=== PATIENT | female | born 1980 | race African-American/Black ===

== ENCOUNTER 2016-06-25 22:54 | Emergency (ER) | payer OTHER ==
[2016-06-25 23:00] VITALS: BP 130/77; PULSE 81; TEMP 98.8; BMI 38.0
--- NOTE | 2016-06-25 23:37 | PDOC ---
History of Present Illness - General Chief Complaint: Vaginal Bleeding Stated Complaint: VAG BLEED/ 5 WEEKS Time Seen by Provider: 06/25/16 23:02 History Source: Patient Exam Limitations: No Limitations - History of Present Illness Travel History: No Initial Comments: 06/25/16 23:31 36yo Female patient with PmHx: Sickle Cell Anemia presents to ED c/o 5 weeks with vaginal bleeding. W2-E5-N2-A1-L3. Patient states experiencing abdominal cramping, back and hip pain x 1 week. She reports vaginal spotting around 1-2 pm today with the passing of clots prior to her arrival in ED. Patient denies n/v/d, fever, dysuria, hematuria, diff breathing, or any other complaints at this time. Associated urinary frequency. LNMP: May 15. TRAFFIC DIRECTOR: Dr. Tse Timing/Duration: reports: changing over time Quality: reports: moderate, cramping Abdominal Pain Onset Location: reports: suprapubic Pain Radiation: reports: no radiation Activities at Onset: reports: none Past History - Travel Traveled outside of the country in the last 30 days: No Close contact w/someone who was outside of country & ill: No - Past Medical History Allergies/Adverse Reactions: Allergies Allergy/AdvReac Type Severity Reaction Status Date / Time ketorolac tromethamine Allergy Severe Swelling Verified 06/25/16 22:58 [From Toradol] meperidine HCl [From Demerol] Allergy Severe Swelling Verified 06/25/16 22:58 Home Medications: Ambulatory Orders NK [No Known Home Medication] 06/25/16 Anemia: Yes (sickle cell ) Other medical history: sicle cell - Immunization History Immunization Up to Date: No - Psycho/Social/Smoking Cessation Hx Anxiety: No Suicidal Ideation: No Smoking Status: No Smoking History: Never smoked Have you smoked in the past 12 months: No Number of Cigarettes Smoked Daily: 0 Cigars Per Day: 0 Information on smoking cessation initiated: No Hx Alcohol Use: No Drug/Substance Use Hx: No Substance Use Type: None Abd/GI Specific PMHX - Complaint Specific PMHX Colitis: No Diverticulitis: No Gall Bladder Disease: No GERD: No Hepatitis: No Irritable Bowel Synd (IBS): No Pancreatitis: No GI Ulcer Disease: No Review of Systems - Review of Systems Able to Perform ROS?: Yes Is the patient limited Lao proficient: No Constitutional: No: Chills, Fever, Night Sweats Respiratory: No: Cough, Shortness of Breath, Stridor, Wheezing Cardiac (ROS): No: Chest Pain, Lightheadedness, Palpitations, Syncope, Chest Tightness ABD/GI: Yes: Abdominal cramping, Other (Vaginal bleeding & 5 weeks ). No: Diarrhea, Nausea, Poor Appetite, Poor Fluid Intake, Vomiting : Yes: Frequency. No: Burning, Dysuria, Flank Pain, Hematuria, Pain, Urgency Musculoskeletal: Yes: Back Pain Neurological: No: Headache Hematologic/Lymphatic: Yes: Anemia (Sickle Cell) All Other Systems: Reviewed and Negative *Physical Exam - Vital Signs Last Vital Signs Temp Pulse Resp BP Pulse Ox 98.8 F 81 14 130/77 98 06/25/16 22:58 06/25/16 22:58 06/25/16 22:58 06/25/16 22:58 06/25/16 22:58 - Physical Exam General Appearance: Yes: Nourished, Appropriately Dressed, Apparent Distress. No: Mild Distress, Moderate Distress, Severe Distress Neck: positive: Trachea midline, Supple. negative: Lymphadenopathy (R), Lymphadenopathy (L) Respiratory/Chest: positive: Lungs Clear, Normal Breath Sounds. negative: Respiratory Distress, Accessory Muscle Use, Labored Respiration, Rapid RR Cardiovascular: positive: Regular Rhythm, Regular Rate. negative: Edema, JVD, Murmur Gastrointestinal/Abdominal: positive: Normal Bowel Sounds, Soft, Other (Neg adenexa pain or suprapubic tenderness on examination.). negative: Distended, Guarding, Rebound, Tenderness Musculoskeletal: positive: Normal Inspection. negative: CVA Tenderness Extremity: positive: Normal Capillary Refill, Normal Inspection, Normal Range of Motion Integumentary: positive: Normal Color, Dry, Warm Neurologic: positive: geriatric social worker II-XII NML intact, Fully Oriented, Alert, Normal Mood/ Affect, Normal Response, Motor Strength 5/5 ED Treatment Course - LABORATORY CBC & Chemistry Diagram: 06/25/16 23:14 06/25/16 23:14 - RADIOLOGY Radiology Studies Ordered: Category Date Time Status <14WKS US [US] Stat Ultrasound 06/25/16 23:03 Ordered *DC/Admit/Observation/Transfer Diagnosis at time of Disposition: Threatened in early Antepartum hemorrhage Qualifiers: Trimester: first trimester Qualified Code(s): O46.91 - Antepartum hemorrhage, unspecified, first trimester - Discharge Dispostion Disposition: HOME Condition at time of disposition: Stable Admit: No - Referrals Referrals: Tania Munroe [Primary Care Provider] - - Patient Instructions Printed Discharge Instructions: DI for Threatened , DI for Vaginal Bleeding During Additional Instructions: FOLLOW UP WITH DR. TSE (TRAFFIC DIRECTOR) ON TUESDAY. IF YOUR SYMPTOMS WORSEN, RETURN FOR FURTHER EVALUATION. Print Language: GHANAIAN - Post Discharge Activity Work/School Note: Back to Work
[2016-06-25 23:39] LABS: BASOPHIL 1.1 % (0-2.0); EOSINOPHIL 3.5 % (0-4.5); MCH 27.4 pg (25.7-33.7); MCHC 34.4 g/dl (32.0-36.0); MEAN CELL VOLUME 79.7 fl (80-96); MEAN PLT VOLUME 6.7 fl (7.5-11.1); NEUTROPHILS 49.8 % (42.8-82.8); PLATELET COUNT 382 K/MM3 (134-434); RDW 16.5 % (11.6-15.6); WHITE BLOOD COUNT 13.8 K/mm3 (4.0-10.0)
[2016-06-25 23:55] LABS: URINE APPEARANCE CLEAR; URINE BILIRUBIN NEGATIVE (NEGATIVE); URINE COLOR LTYELLOW; URINE GLUCOSE (UA) NEGATIVE (NEGATIVE); URINE KETONE NEGATIVE (NEGATIVE); URINE LEUK ESTERASE NEGATIVE (NEGATIVE); URINE NITRITE NEGATIVE (NEGATIVE); URINE PROTEIN NEGATIVE (NEGATIVE); URINE UROBILINOGEN NEGATIVE E.U./dl (0.2-1.0)
[2016-06-26 00:03] LABS: ALBUMIN 3.8 g/dl (3.4-5.0); ANION GAP 9 (8-16); BILIRUBIN,TOTAL 0.8 mg/dL (0.2-1.0); CO2 28 mmol/L (21-32); CREATININE 0.7 mg/dL (0.55-1.02); GLUCOSE,RANDOM 86 mg/dL (74-106); SGOT/AST 21 U/L (15-37); SGPT/ALT 21 U/L (12-78); TOT PROT 7.2 g/dl (6.4-8.2)
[2016-06-26 00:04] LABS: ALK PHOS 53 U/L (45-117)
[2016-06-26 00:10] LABS: URINE BLOOD 3+ (NEGATIVE)
[2016-06-26 00:12] LABS: URINE BACTERIA RARE /hpf (NONE SEEN); URINE MUCUS RARE; URINE RBC 1 /hpf (0-3); URINE WBC 3 /hpf (3-5)
--- NOTE | 2016-06-26 00:33 | PDOC ---
[id number] 98 06/25/16 22:58 06/25/16 22:58 06/25/16 22:58 06/25/16 22:58 06/25/16 22:58 ED Treatment Course - LABORATORY CBC & Chemistry Diagram: 06/25/16 23:14 06/25/16 23:14 - ADDITIONAL ORDERS Additional order review: Laboratory Results 06/25/16 06/25/16 06/25/16 23:14 23:14 23:14 Sodium 141 Potassium 3.8 Chloride 104 Carbon Dioxide 28 Anion Gap 9 BUN 9 D Creatinine 0.7 D Creat Clearance w eGFR > 60 Random Glucose 86 Calcium 9.0 Total Bilirubin 0.8 AST 21 D ALT 21 D Alkaline Phosphatase 53 Total Protein 7.2 Albumin 3.8 Beta HCG, Quant 4111.6 Serum , Qual Urine Color Urine Appearance Urine pH Ur Specific [place] Urine Protein Urine Glucose (UA) Urine Ketones Urine Blood Urine Nitrite Urine Bilirubin Urine Urobilinogen Ur Leukocyte Esterase Urine RBC Urine WBC Ur Epithelial Cells Urine Bacteria Urine Mucus Blood Type O POSITIVE Antibody Screen Negative 06/25/16 23:14 Sodium Potassium Chloride Carbon Dioxide Anion Gap BUN Creatinine Creat Clearance w eGFR Random Glucose Calcium Total Bilirubin AST ALT Alkaline Phosphatase Total Protein Albumin Beta HCG, Quant Serum , Qual Positive Urine Color Ltyellow Urine Appearance Clear Urine pH 7.0 D Ur Specific [place] 1.012 Urine Protein Negative Urine Glucose (UA) Negative Urine Ketones Negative Urine Blood 3+ H Urine Nitrite Negative Urine Bilirubin Negative Urine Urobilinogen Negative Ur Leukocyte Esterase Negative Urine RBC 1 Urine WBC 3 Ur Epithelial Cells Few Urine Bacteria Rare Urine Mucus Rare Blood Type Antibody Screen 06/25/16 23:14 RBC 3.48 L MCV 79.7 L MCHC 34.4 RDW 16.5 H MPV 6.7 L Neutrophils % 49.8 Lymphocytes % 37.4 D Monocytes % 8.2 Eosinophils % 3.5 Basophils % 1.1 Medical Decision Making - Medical Decision Making 06/26/16 00:33 Pt seen by the Advanced Practice Provider under my direct supervision Ancillary studies reviewed I agree with plan as outlined by the Advanced Practice Provider JACKIE Collins *DC/Admit/Observation/Transfer Diagnosis at time of Disposition: Threatened in early , Vaginal bleeding in - Discharge Dispostion Disposition: HOME Condition at time of disposition: Stable - Referrals Referrals: Tania Munroe [Primary Care Provider] - - Patient Instructions Printed Discharge Instructions: DI for Threatened , DI for Vaginal Bleeding During Additional Instructions: FOLLOW UP WITH DR. PEDERSEN (SECOND STEWARD) ON TUESDAY. IF YOUR SYMPTOMS WORSEN, RETURN FOR FURTHER EVALUATION. Print Language: POLISH - Post Discharge Activity Work/School Note: Back to Work
== END 2016-06-26 02:28 | disposition home or self-care (01) ==
LOC: JER 22:54
DX: O26.891 Other specified pregnancy related conditions, first trimester (principal); Z3A.01 Less than 8 weeks gestation of pregnancy; O20.0 Threatened abortion; D57.1 Sickle-cell disease without crisis
CPT/HCPCS: 36415; 76801-TC; 80053; 81003; 81015; 84702; 84703; 85025; 85044; 86850; 86900; 86901; 99282-25

== ENCOUNTER 2016-07-10 03:07 | Emergency (ER) | payer OTHER ==
[2016-07-10] MEDS ORDERED: SODIUM CHLORIDE 0.9% 500 ML INFUS.BAG IV ONE (03:33)
--- NOTE | 2016-07-10 03:34 | PDOC ---
[id number] No Limitations - History of Present Illness Initial Comments: 07/10/16 04:07 The patient is a 36-year-old female who is 7 weeks , (A1), with a significant past medical history of sickle cell disease and prior blood transfusion (hemorrhage during ), who presents to the ED with vaginal bleeding that began 3 weeks ago. Patient was seen in the ED on 06/26 for vaginal bleeding and was discharged with threatened baby. The pts bleeding has not stopped since her last visit and progressively worsened last night. While in ED , pt is experiencing abdominal cramping and dizziness. The patient denies any nausea, vomiting, or diarrhea. The patient denies any chest pain or shortness of breath. <Chela Herrera - Last Filed: 07/10/16 04:07> <Zeferino López - Last Filed: 08/05/16 06:29> - General Chief Complaint: Vaginal Bleeding Stated Complaint: VAGINAL BLEEDING Past History <Chela Herrera - Last Filed: 07/10/16 04:07> - Past Medical History Anemia: Yes (sickle cell ) - Reproductive History (#): 5 Para: 3 Therapeutic (s) & number: Yes (1) - Immunization History Immunization Up to Date: No - Psycho/Social/Smoking Cessation Hx Anxiety: No Suicidal Ideation: No Smoking Status: No Smoking History: Never smoked Have you smoked in the past 12 months: No Number of Cigarettes Smoked Daily: 0 Cigars Per Day: 0 Hx Alcohol Use: No Drug/Substance Use Hx: No Substance Use Type: None <Zeferino López - Last Filed: 08/05/16 06:29> - Past Medical History Allergies/Adverse Reactions: Allergies Allergy/AdvReac Type Severity Reaction Status Date / Time ketorolac tromethamine Allergy Severe Swelling Verified 07/10/16 03:20 [From Toradol] meperidine HCl [From Demerol] Allergy Severe Swelling Verified 07/10/16 03:20 hydromorphone HCl AdvReac Mild Itching Verified 07/10/16 06:46 [From Dilaudid] morphine AdvReac Mild Itching Verified 07/10/16 06:46 Home Medications: Ambulatory Orders Methylergonovine Maleate [Methergine] 0.2 mg PO Q8H #6 tablet 07/10/16 Review of Systems - Review of Systems Able to Perform ROS?: Yes Comments:: 07/10/16 04:07 GENERAL/CONSTITUTIONAL: No fever or chills. No weakness. HEAD, EYES, EARS, NOSE AND THROAT: No change in vision. No ear pain or discharge. No sore throat. CARDIOVASCULAR: No chest pain or shortness of breath. RESPIRATORY: No cough, wheezing, or hemoptysis. GASTROINTESTINAL: No nausea, vomiting, diarrhea or constipation. (+)Abdominal cramping GENITOURINARY: No dysuria, frequency, or change in urination. (+)vaginal bleeding MUSCULOSKELETAL: No joint or muscle swelling or pain. No neck or back pain. SKIN: No rash NEUROLOGIC: No headache, vertigo, loss of consciousness, or change in strength/ sensation. (+)Dizziness ENDOCRINE: No increased thirst. No abnormal weight change. HEMATOLOGIC/LYMPHATIC: No anemia, easy bleeding, or history of blood clots. ALLERGIC/IMMUNOLOGIC: No hives or skin allergy. <Chela Herrera - Last Filed: 07/10/16 04:07> *Physical Exam - Vital Signs Last Vital Signs Temp Pulse Resp BP Pulse Ox 90 24 132/80 97 07/10/16 03:20 07/10/16 03:20 07/10/16 03:20 07/10/16 03:20 - Physical Exam Comments: 07/10/16 04:08 GENERAL: Awake, alert, and fully oriented, in no acute distress HEAD: No signs of trauma EYES: PERRLA, EOMI, sclera anicteric, conjunctiva clear ENT: Auricles normal inspection, hearing grossly normal, nares patent, oropharynx clear without exudates. Moist mucosa. NECK: Normal ROM, supple, no lymphadenopathy, JVD, or masses LUNGS: Breath sounds equal, clear to auscultation bilaterally. No wheezes, and no crackles HEART: Regular rate and rhythm, normal S1 and S2, no murmurs, rubs or gallops ABDOMEN: Soft, nontender, normoactive bowel sounds. No guarding, no rebound. No masses EXTREMITIES: Normal range of motion, no edema. No clubbing or cyanosis. No cords, erythema, or tenderness NEUROLOGICAL: Cranial nerves II through XII grossly intact. Normal speech, normal gait SKIN: Warm, Dry, normal turgor, no rashes or lesions noted Pelvic Exam chaperoned by Clay: Uncomfortable suprapubic pain on palpation. Significant amount of coagulants as well as product of conception. No pain noted on palpation of vaginal cavity. Cervical os is open <Chela Herrera - Last Filed: 07/10/16 04:07> - Vital Signs Last Vital Signs Temp Pulse Resp BP Pulse Ox 90 24 132/80 97 07/10/16 03:20 07/10/16 03:20 07/10/16 03:20 07/10/16 03:20 <Zeferino López - Last Filed: 08/05/16 06:29> ED Treatment Course - LABORATORY CBC & Chemistry Diagram: 07/10/16 03:55 - Medications Given in the ED: ED Medications Discontinued Medications Generic Name Dose Route Start Last Admin Trade Name Jeromeq PRN Reason Stop Dose Admin Morphine Sulfate 8 mg 07/10/16 03:40 07/10/16 03:54 Morphine Injection - IVPUSH 07/10/16 03:41 8 mg ONCE ONE Administration Sodium Chloride 1,000 ml 07/10/16 03:33 07/10/16 03:55 Normal Saline - IV 07/10/16 03:34 1,000 ml ONCE ONE Administration <Chela Herrera - Last Filed: 07/10/16 04:07> - LABORATORY CBC & Chemistry Diagram: 07/10/16 04:50 07/10/16 04:52 <Zeferino López - Last Filed: 08/05/16 06:29> Medical Decision Making - Medical Decision Making 08/05/16 06:29 ED attending: available for consultation <Zeferino López - Last Filed: 08/05/16 06:29> *DC/Admit/Observation/Transfer - Attestations Scribe Attestion: 07/10/16 04:12 Documentation prepared by Chela Herrera, acting as medical supply technician for Zeferino López MD. <Chela Herrera - Last Filed: 07/10/16 04:07> - Discharge Dispostion Admit: No <Zeferino López - Last Filed: 08/05/16 06:29> Diagnosis at time of Disposition: Inevitable - Discharge Dispostion Disposition: HOME Condition at time of disposition: Good - Prescriptions Prescriptions: Methylergonovine Maleate [Methergine] 0.2 mg PO Q8H #6 tablet - Patient Instructions Printed Discharge Instructions: DI for Miscarriage - Post Discharge Activity Work/School Note: Back to Work
[2016-07-10 03:39] VITALS: BMI 38.0
[2016-07-10] MEDS ORDERED: morphine CARPU-JECT 4 MG/1 ML DISP.SYRIN IVPUSH ONE (03:40)
[2016-07-10] MEDS ORDERED: morphine CARPU-JECT 4 MG/1 ML DISP.SYRIN ONE (03:44)
[2016-07-10] MEDS ORDERED: HYDROmorphone HCL CARPU-JECT 1 MG/1 ML DISP.SYRIN IVPUSH ONE (04:41)
[2016-07-10] MEDS ORDERED: HYDROmorphone HCL CARPU-JECT 1 MG/1 ML DISP.SYRIN ONE (04:43)
[2016-07-10 04:57] LABS: BASOPHIL 0.3 % (0-2.0); EOSINOPHIL 2.8 % (0-4.5); MCHC 34.9 g/dl (32.0-36.0); MEAN PLT VOLUME 6.5 fl (7.5-11.1); NEUTROPHILS 60.5 % (42.8-82.8); PLATELET COUNT 416 K/MM3 (134-434); RDW 16.7 % (11.6-15.6); WHITE BLOOD COUNT 12.6 K/mm3 (4.0-10.0)
[2016-07-10 05:20] LABS: ALBUMIN 3.9 g/dl (3.4-5.0); ALK PHOS 55 U/L (45-117); ANION GAP 9 (8-16); CALCIUM 8.4 mg/dL (8.5-10.1); CO2 26 mmol/L (21-32); CREATININE 0.8 mg/dL (0.55-1.02); GLUCOSE,RANDOM 93 mg/dL (74-106); SGOT/AST 25 U/L (15-37); SGPT/ALT 20 U/L (12-78); TOT PROT 7.1 g/dl (6.4-8.2)
[2016-07-10] MEDS ORDERED: FAMOTIDINE 20 MG/50 ML IVPB 50 ML IVPB ONE ×2 (06:13→06:44)
--- NOTE | 2016-07-10 09:19 | PDOC ---
[id number] 100 07/10/16 06:44 07/10/16 06:44 07/10/16 06:44 07/10/16 06:44 07/10/16 06:44 ED Treatment Course - LABORATORY CBC & Chemistry Diagram: 07/10/16 04:50 07/10/16 04:52 - ADDITIONAL ORDERS Additional order review: Laboratory Results 07/10/16 07/10/16 07/10/16 04:52 04:50 04:49 Sodium 141 Potassium 3.6 Chloride 106 Carbon Dioxide 26 Anion Gap 9 BUN 9 Creatinine 0.8 Creat Clearance w eGFR > 60 Random Glucose 93 Calcium 8.4 L Total Bilirubin 1.0 D AST 25 ALT 20 Alkaline Phosphatase 55 Total Protein 7.1 Albumin 3.9 Beta HCG, Quant 2514.7 Blood Type O POSITIVE Antibody Screen Negative 07/10/16 07/10/16 03:55 03:55 Sodium Potassium Chloride Carbon Dioxide Anion Gap BUN Creatinine Creat Clearance w eGFR Random Glucose Calcium Total Bilirubin AST ALT Alkaline Phosphatase Total Protein Albumin Beta HCG, Quant Cancelled Blood Type O POSITIVE Antibody Screen Negative 07/10/16 07/10/16 04:50 03:55 RBC 3.11 L Cancelled MCV 80.0 Cancelled MCHC 34.9 Cancelled RDW 16.7 H Cancelled MPV 6.5 L Cancelled Neutrophils % 60.5 D Cancelled Lymphocytes % 26.6 D Cancelled Monocytes % 9.8 Cancelled Eosinophils % 2.8 Cancelled Basophils % 0.3 Cancelled - Medications Given in the ED: ED Medications Discontinued Medications Generic Name Dose Route Start Last Admin Trade Name Freq PRN Reason Stop Dose Admin Diphenhydramine HCl 12.5 mg 07/10/16 06:44 07/10/16 06:45 Benadryl Injection - IVPUSH 07/10/16 06:45 12.5 mg ONCE ONE Administration Hydromorphone HCl 1 mg 07/10/16 04:41 07/10/16 04:47 Dilaudid Injection - IVPUSH 07/10/16 04:42 1 mg ONCE ONE Administration Famotidine/Sodium Chloride 50 mls @ 100 mls/hr 07/10/16 06:44 07/10/16 06:45 Pepcid 20 Mg Premixed Ivpb - IVPB 07/10/16 07:13 100 mls/hr ONCE ONE Administration Morphine Sulfate 8 mg 07/10/16 03:40 07/10/16 03:54 Morphine Injection - IVPUSH 07/10/16 03:41 8 mg ONCE ONE Administration Sodium Chloride 1,000 ml 07/10/16 03:33 07/10/16 03:55 Normal Saline - IV 07/10/16 03:34 1,000 ml ONCE ONE Administration Medical Decision Making - Medical Decision Making 07/10/16 09:50 Late entry. Patient received on signout, with spontaneous miscarriage in progress. Patient has returned from sono, reading shows material in the cervical canal, uterus with no POCs. As per patient her bleeding has decreased. Will give methergine and cont to monitor. 07/10/16 11:23 Pt tolerated methergine, no c/o pain. Will place her on it for 2 days. Outpatient rn palliative f/u. *DC/Admit/Observation/Transfer Diagnosis at time of Disposition: Inevitable - Discharge Dispostion Disposition: HOME Condition at time of disposition: Stable Admit: No - Prescriptions Prescriptions: Methylergonovine Maleate [Methergine] 0.2 mg PO Q8H #6 tablet - Patient Instructions Printed Discharge Instructions: DI for Miscarriage - Post Discharge Activity Work/School Note: Back to Work
[2016-07-10] MEDS ORDERED: METHYLERGONOVINE MALEATE 0.2 MG/1 ML AMP IM ONE (09:21)
[2016-07-10] MEDS ORDERED: METHYLERGONOVINE MALEATE 0.2 MG/1 ML AMP ONE (09:53)
[2016-07-10 11:07] VITALS: BP 118/71; PULSE 81; TEMP 98.6
--- NOTE | 2016-07-14 14:28 | PATH ---
Surgical Pathology Report Patient Name: PATRICIA DAVE Med. Rec. #: [id number] /Age/Gender: 1980 (Age: 36) / F Account: [id number] Location: EMERGENCY ROOM Taken: 07/10/2016 Received: 07/12/2016 Reported: 07/14/2016 Physicians: Mala Santizo Specimen(s) Received PRODUCTS OF CONCEPTION Clinical History Inevitable Removal of products of conception approximately 7 weeks Final Diagnosis POC, REMOVAL: NO SOMATIC PARTS IDENTIFIED. NO CHORIONIC TISSUE IDENTIFIED. PREDOMINANTLY CLOTTED BLOOD. Comment: This result was reported to Dr. Mala Santizo at [facility] ED on 07/14/16. Follow up with hCG levels is suggested. Electronically Signed Jose Castillo M.D. Gross Description Received in formalin labeled with the patient's name and indicated on the requisition to be products of conception, is a 6.5 x 6.0 x 0.7 cm aggregate of red-brown blood clot. No definite villous tissue or somatic tissues identified. Parts Identification Technician sections are submitted in 3 cassettes. /07/12/2016 saudi/07/12/2016
== END 2016-07-10 11:08 | disposition home or self-care (01) ==
LOC: JER 03:07
PROC: 3E023GC Introduction of Other Therapeutic Substance into Muscle, Percutaneous Approach (ICD-10-PCS; principal; 2016-07-10)
PROC: 3E033NZ Introduction of Analgesics, Hypnotics, Sedatives into Peripheral Vein, Percutaneous Approach (ICD-10-PCS; 2016-07-10)
PROC: 3E033GC Introduction of Other Therapeutic Substance into Peripheral Vein, Percutaneous Approach (ICD-10-PCS; 2016-07-10)
PROC: 3E033GC Introduction of Other Therapeutic Substance into Peripheral Vein, Percutaneous Approach (ICD-10-PCS; 2016-07-10)
DX: O03.4 Incomplete spontaneous abortion without complication (principal); Z3A.01 Less than 8 weeks gestation of pregnancy
CPT/HCPCS: 36415; 76830-TC; 80053; 84702; 85025; 86850; 86900; 86901; 88305-TC; 96365; 96372; 96375; 99285-25

== ENCOUNTER 2017-02-09 18:53 | Emergency (ER) | payer OTHER ==
[2017-02-09 19:00] VITALS: BP 119/82; PULSE 88; TEMP 99; BMI 36.5
--- NOTE | 2017-02-09 19:26 | PDOC ---
History of Present Illness - General History Source: Patient Exam Limitations: No Limitations - History of Present Illness Initial Comments: 02/09/17 19:34 Patient is a 74 year old female, [id number], who presents to the ED with abdominal cramping. She denies any vaginal bleeding or discharge. She states that she is approximately 3 months and has not had SERVICE ORDER TAKER follow up or US. Patient states that her LMP was in early November. She denies any fever or chills. <Carolyn Mehta - Last Filed: 02/09/17 19:34> <Mala Santizo - Last Filed: 02/09/17 23:35> - General Chief Complaint: Pain Stated Complaint: PAIN Time Seen by Provider: 02/09/17 19:15 Past History <Carolyn Mehta - Last Filed: 02/09/17 19:34> - Past Medical History Anemia: Yes (sickle cell ) - Reproductive History (#): 5 Para: 3 Therapeutic (s) & number: Yes (1) - Immunization History Immunization Up to Date: No - Suicide/Smoking/Psychosocial Hx Smoking Status: No Smoking History: Never smoked Have you smoked in the past 12 months: No Number of Cigarettes Smoked Daily: 0 Cigars Per Day: 0 Hx Alcohol Use: No Drug/Substance Use Hx: No Substance Use Type: None <Mala Santizo - Last Filed: 02/09/17 23:35> - Past Medical History Allergies/Adverse Reactions: Allergies Allergy/AdvReac Type Severity Reaction Status Date / Time ketorolac tromethamine Allergy Severe Swelling Verified 02/09/17 19:00 [From Toradol] meperidine HCl [From Demerol] Allergy Severe Swelling Verified 02/09/17 19:00 hydromorphone HCl AdvReac Mild Itching Verified 02/09/17 19:00 [From Dilaudid] morphine AdvReac Mild Itching Verified 02/09/17 19:00 Home Medications: Ambulatory Orders NK [No Known Home Medication] 02/09/17 Review of Systems - Review of Systems Able to Perform ROS?: Yes Comments:: 02/09/17 19:34 GENERAL/CONSTITUTIONAL: No fever or chills. No weakness. HEAD, EYES, EARS, NOSE AND THROAT: No change in vision. No ear pain or discharge. No sore throat. GASTROINTESTINAL: +abdominal pain. No nausea, vomiting, diarrhea or constipation. GENITOURINARY: No dysuria, frequency, or change in urination. CARDIOVASCULAR: No chest pain or shortness of breath. RESPIRATORY: No cough, wheezing, or hemoptysis. MUSCULOSKELETAL: No joint or muscle swelling or pain. No neck or back pain. SKIN: No rash NEUROLOGIC: No headache, vertigo, loss of consciousness, or change in strength/ sensation. ENDOCRINE: No increased thirst. No abnormal weight change. HEMATOLOGIC/LYMPHATIC: No anemia, easy bleeding, or history of blood clots. ALLERGIC/IMMUNOLOGIC: No hives or skin allergy. <Carolyn Mehta - Last Filed: 02/09/17 19:34> *Physical Exam - Vital Signs Last Vital Signs Temp Pulse Resp BP Pulse Ox 99.0 F 88 20 119/82 98 02/09/17 18:57 02/09/17 18:57 02/09/17 18:57 02/09/17 18:57 02/09/17 18:57 <Carolyn Mehta - Last Filed: 02/09/17 19:34> - Vital Signs Last Vital Signs Temp Pulse Resp BP Pulse Ox 99.0 F 88 20 119/82 98 02/09/17 18:57 02/09/17 18:57 02/09/17 18:57 02/09/17 18:57 02/09/17 18:57 - Physical Exam Comments: GENERAL: Awake, alert, and fully oriented, in no acute distress HEAD: No signs of trauma EYES: PERRLA, EOMI, sclera anicteric, conjunctiva clear ENT: Auricles normal inspection, hearing grossly normal, nares patent, oropharynx clear without exudates. Moist mucosa NECK: Normal ROM, supple, no lymphadenopathy, JVD, or masses LUNGS: Breath sounds equal, clear to auscultation bilaterally. No wheezes, and no crackles HEART: Regular rate and rhythm, normal S1 and S2, no murmurs, rubs or gallops ABDOMEN: Soft, +suprapubic tenderness, normoactive bowel sounds. No guarding, no rebound. No masses EXTREMITIES: Normal range of motion, no edema. No clubbing or cyanosis. No cords, erythema, or tenderness NEUROLOGICAL: Cranial nerves II through XII grossly intact. Normal speech, normal gait SKIN: Warm, Dry, normal turgor, no rashes or lesions noted. <Mala Santizo - Last Filed: 02/09/17 23:35> ED Treatment Course - LABORATORY CBC & Chemistry Diagram: 02/09/17 20:00 02/09/17 20:00 <Mala Santizo - Last Filed: 02/09/17 23:35> *DC/Admit/Observation/Transfer - Attestations Scribe Attestion: 02/09/17 19:35 Documentation prepared by NEVA Lazcano, acting as medical records auditor for Mala Santizo MD. <Carolyn Mehta - Last Filed: 02/09/17 19:34> - Discharge Dispostion Admit: No <Mala Santizo - Last Filed: 02/09/17 23:35> Diagnosis at time of Disposition: Second trimester - Discharge Dispostion Disposition: HOME Condition at time of disposition: Stable
[2017-02-09] MEDS ORDERED: SODIUM CHLORIDE 1,000 ML IV STA (19:27)
[2017-02-09 20:05] LABS: BASOPHIL 1.2 % (0-2.0); EOSINOPHIL 3.1 % (0-4.5); MCH 29.1 pg (25.7-33.7); MCHC 34.7 g/dl (32.0-36.0); MEAN CELL VOLUME 83.9 fl (80-96); MEAN PLT VOLUME 6.7 fl (7.5-11.1); NEUTROPHILS 66.3 % (42.8-82.8); PLATELET COUNT 392 K/MM3 (134-434); RDW 15.8 % (11.6-15.6)
[2017-02-09 20:08] LABS: URINE APPEARANCE SLCLOUDY; URINE BILIRUBIN NEGATIVE (NEGATIVE); URINE BLOOD 1+ (NEGATIVE); URINE COLOR YELLOW; URINE GLUCOSE (UA) NEGATIVE (NEGATIVE); URINE KETONE NEGATIVE (NEGATIVE); URINE NITRITE NEGATIVE (NEGATIVE); URINE PROTEIN NEGATIVE (NEGATIVE); URINE UROBILINOGEN NEGATIVE mg/dL (0.2-1.0)
[2017-02-09 20:53] LABS: URINE BACTERIA FEW /hpf (NONE SEEN)
[2017-02-09 21:03] LABS: ALBUMIN 3.3 g/dl (3.4-5.0); ANION GAP 10 (8-16); CALCIUM 8.7 mg/dL (8.5-10.1); CO2 24 mmol/L (21-32); CREATININE 0.6 mg/dL (0.55-1.02); GLUCOSE,RANDOM 110 mg/dL (74-106); SGOT/AST 20 U/L (15-37); SGPT/ALT 17 U/L (12-78); TOT PROT 7.1 g/dl (6.4-8.2)
[2017-02-09 21:20] LABS: ALK PHOS 52 U/L (45-117)
[2017-02-09 22:22] LABS: URINE LEUK ESTERASE Negative (NEGATIVE)
[2017-02-10] MEDS ORDERED: SODIUM CHLORIDE 1,000 ML IV STA (00:53)
[2017-02-10] MEDS ORDERED: ACETAMINOPHEN 1000 MG/100 ML VIAL (NON FORMULARY) IVPB ONE (00:53)
[2017-02-10] MEDS ORDERED: ACETAMINOPHEN INJECTION 100 ML IVPB ONE (01:01)
== END 2017-02-10 02:46 | disposition home or self-care (01) ==
LOC: JER 18:53
DX: O26.891 Other specified pregnancy related conditions, first trimester (principal); O34.11 Maternal care for benign tumor of corpus uteri, first trimester; D25.1 Intramural leiomyoma of uterus; Z3A.13 13 weeks gestation of pregnancy
CPT/HCPCS: 36415; 76801-TC; 80053; 81003; 81015; 84702; 85025; 99283-25

== ENCOUNTER 2017-03-02 16:22 | Emergency (ER) | payer OTHER ==
--- NOTE | 2017-03-02 16:30 | PDOC ---
Rapid Medical Evaluation Time Seen by Provider: 03/02/17 16:27 Medical Evaluation: Allergies Allergy/AdvReac Type Severity Reaction Status Date / Time ketorolac tromethamine Allergy Severe Swelling Verified 02/09/17 19:00 [From Toradol] meperidine HCl [From Demerol] Allergy Severe Swelling Verified 02/09/17 19:00 hydromorphone HCl AdvReac Mild Itching Verified 02/09/17 19:00 [From Dilaudid] morphine AdvReac Mild Itching Verified 02/09/17 19:00 03/02/17 16:28 I have performed a brief in-person evaluation of this patient. The patient presents with a chief complaint of:16 weeks w/ abd camping and vaginal bleeding. Has had documented IUP this . Was seen in ED 3 weeks ago for similar sxs Pertinent physical exam findings:Stable and in NAD I have ordered the following:ua/beta/T&S The patient will proceed to the ED for further evaluation.
[2017-03-02 16:31] VITALS: TEMP 98.9; BMI 37.0
[2017-03-02 16:46] LABS: URINE APPEARANCE SLCLOUDY; URINE BILIRUBIN NEGATIVE (NEGATIVE); URINE BLOOD 1+ (NEGATIVE); URINE COLOR YELLOW; URINE GLUCOSE (UA) NEGATIVE (NEGATIVE); URINE KETONE NEGATIVE (NEGATIVE); URINE NITRITE NEGATIVE (NEGATIVE); URINE PROTEIN NEGATIVE (NEGATIVE)
[2017-03-02 16:56] LABS: URINE MUCUS RARE; URINE RBC 1; URINE WBC 3
--- NOTE | 2017-03-02 17:33 | PDOC ---
History of Present Illness - General Chief Complaint: Pain Stated Complaint: PAIN Time Seen by Provider: 03/02/17 16:27 - History of Present Illness Initial Comments: 03/02/17 17:26 36 yo at 16 wga with h/o sickle cell disease who presents with abdominal pain and vaginal bleeding. Pt. reports onset of stable, crampy/ colicky lower abdominal abdominal pain beginning Saturday ( 02/26/17) with new onset of dark red vaginal spotting yesterday evening. Endorses 24 hr of lightheadedness, and chronic nausea w/out vomiting and lower back pain. Denies bright red gush of blood, vaginal discharge, pelvic pain, fevers/chills, chest pain, vision changes, weakness, urinary complaints, flank pain diarrhea. Recently seen at [facility] this week for abdominal pain and scheduled to have outpatient transvaginal U/S. H/o 2 vaginal pregnancies and 1 caesarian section with no complications. No trauma to abdomen, illicit drug use, or alcohol intake. Past History - Past Medical History Allergies/Adverse Reactions: Allergies Allergy/AdvReac Type Severity Reaction Status Date / Time ketorolac tromethamine Allergy Severe Swelling Verified 03/02/17 16:28 [From Toradol] meperidine HCl [From Demerol] Allergy Severe Swelling Verified 03/02/17 16:28 hydromorphone HCl AdvReac Mild Itching Verified 03/02/17 16:28 [From Dilaudid] morphine AdvReac Mild Itching Verified 03/02/17 16:28 Home Medications: Ambulatory Orders NK [No Known Home Medication] 02/09/17 Anemia: Yes (sickle cell ) COPD: No - Reproductive History (#): 5 Para: 3 Therapeutic (s) & number: Yes (1) - Immunization History Immunization Up to Date: No - Suicide/Smoking/Psychosocial Hx Smoking Status: No Smoking History: Never smoked Have you smoked in the past 12 months: No Number of Cigarettes Smoked Daily: 0 Cigars Per Day: 0 Hx Alcohol Use: No Drug/Substance Use Hx: No Substance Use Type: None Review of Systems - Review of Systems Comments:: 03/02/17 17:26 GENERAL/CONSTITUTIONAL: No fever or chills. No weakness. HEAD, EYES, EARS, NOSE AND THROAT: No change in vision. No ear pain or discharge. No sore throat.- CARDIOVASCULAR: No chest pain or shortness of breath RESPIRATORY: No cough, wheezing, or hemoptysis. GASTROINTESTINAL: + nausea, and abdominal pain. No vomiting, diarrhea or constipation. GENITOURINARY: + Vaginal Bleeding.No dysuria, frequency, or change in urination. MUSCULOSKELETAL: No joint or muscle swelling or pain. No neck or back pain. SKIN: No rash NEUROLOGIC: No headache, vertigo, loss of consciousness, or change in strength/ sensation. ENDOCRINE: No increased thirst. No abnormal weight change HEMATOLOGIC/LYMPHATIC: No anemia, easy bleeding, or history of blood clots. ALLERGIC/IMMUNOLOGIC: No hives or skin allergy. *Physical Exam - Vital Signs Last Vital Signs Temp Pulse Resp BP Pulse Ox 98.9 F 93 H 18 125/75 97 03/02/17 16:29 03/02/17 16:29 03/02/17 16:29 03/02/17 16:29 03/02/17 16:29 - Physical Exam Comments: 03/02/17 17:26 GENERAL: Awake, alert, and fully oriented, in no acute distress HEAD: No signs of trauma, normocephalic, atraumatic EYES: PERRLA, EOMI, sclera anicteric, conjunctiva clear ENT: Hearing grossly normal, nares patent, oropharynx clear without exudates. Moist mucosa NECK: Normal ROM, no JVD, or masses LUNGS: No distress, speaks full sentences, clear to auscultation bilaterally HEART: Regular rate and rhythm, normal S1 and S2, no murmurs, rubs or gallops, peripheral pulses normal and equal bilaterally. ABDOMEN: Soft, ttp in RLQ >RUQ, and LLQ. Neg CVA ttp. normoactive bowel sounds. No guarding, no rebound, no rigidity. No masses. Absent McBurney point ttp or negron sign. Pelvic exam: Normal external genitalia. Cervical os closed with absent visualiztion of blood or discharge. Neg cervical motion ttp on bimanual exam. EXTREMITIES : Normal inspection, Normal range of motion, no edema. No clubbing or cyanosis. SKIN: Warm, Dry, normal turgor, no rashes or lesions noted. ED Treatment Course - LABORATORY CBC & Chemistry Diagram: 03/02/17 18:25 03/02/17 18:25 - ADDITIONAL ORDERS Additional order review: Laboratory Results 03/02/17 16:38 Urine Color Yellow Urine Appearance Slcloudy Urine pH 5.0 Ur Specific [place] 1.013 Urine Protein Negative Urine Glucose (UA) Negative Urine Ketones Negative Urine Blood 1+ H Urine Nitrite Negative Urine Bilirubin Negative Urine Urobilinogen 2.0 H Urine WBC (Auto) 3 Urine RBC (Auto) 1 Ur Epithelial Cells Rare Urine Mucus Rare Medical Decision Making - Medical Decision Making 03/02/17 18:26 36 yo with h/o sickle cell disease who presents with stable, crampy/ colicky lower abdominal abdominal pain beginning Tuesday ( 02/26/17) and new onset of dark red vaginal spotting yesterday evening ( 02/16.4) No other asx. complaints. Denies bright red gush of blood, vaginal discharge, pelvic pain, fevers/chills, chest pain, vision changes, weakness, urinary complaints, flank pain diarrhea. Physical exam reveals diffuse abdominal ttp with lower quadrant predominance. Hemodynamically stable. H/o 2 vaginal pregnancies and 1 caesarian section with no complications. No trauma to abdomen, illicit drug use, or alcohol intake. We will obtain transvaginal U/S to assess for viable intrauterine gestation. Concerned for threatened, incomplete with ab pain and bleeding. Also it is reasonable to consider plaenta previa vs. ectopic. ED Course: CBC, CMP, BHCG, T&S TRANSVAGINAL U/S 03/02/17 18:33 HC 03/02/17 19:20 CBC: Leukocytosis 14.5 Hgb: 9.5 (at baseline) 03/02/17 19:[address] Glass. Pending CMP, and Transvaginal U/S. *DC/Admit/Observation/Transfer Diagnosis at time of Disposition: Vaginal bleeding affecting early - Discharge Dispostion Disposition: HOME Condition at time of disposition: Good - Referrals - Patient Instructions Printed Discharge Instructions: DI for Vaginal Bleeding During Additional Instructions: Please see your OBGYN in the next 7 days. Please return if you have any new, worsening or concerning symptoms. -Dr Glass - Post Discharge Activity
[2017-03-02 18:51] LABS: BASOPHIL 0.5 % (0-2.0); EOSINOPHIL 1.9 % (0-4.5); MCH 29.5 pg (25.7-33.7); MCHC 35.1 g/dl (32.0-36.0); MEAN CELL VOLUME 84.2 fl (80-96); MEAN PLT VOLUME 6.7 fl (7.5-11.1); NEUTROPHILS 60.6 % (42.8-82.8); PLATELET COUNT 441 K/MM3 (134-434); RDW 16.1 % (11.6-15.6); WHITE BLOOD COUNT 14.5 K/mm3 (4.0-10.0)
--- NOTE | 2017-03-02 18:57 | PDOC ---
Attending Attestation - Physicial Exam PE: 03/02/17 18:58 GENERAL: Obese, Awake, alert, and fully oriented, in no acute distress HEAD: No signs of trauma EYES: PERRLA, EOMI, sclera anicteric, conjunctiva clear ENT: Auricles normal inspection, hearing grossly normal, nares patent, oropharynx clear without exudates. Moist mucosa NECK: Normal ROM, supple, no lymphadenopathy, JVD, or masses LUNGS: Breath sounds equal, clear to auscultation bilaterally. No wheezes, and no crackles HEART: Regular rate and rhythm, normal S1 and S2, no murmurs, rubs or gallops ABDOMEN: Gravid below the umbilicus, no tenderness to palpation. Soft, normoactive bowel sounds. No guarding, no rebound. No masses EXTREMITIES: Normal range of motion, no edema. No clubbing or cyanosis. No cords, erythema, or tenderness NEUROLOGICAL: Cranial nerves II through XII grossly intact. Normal speech, normal gait SKIN: Warm, Dry, normal turgor, no rashes or lesions noted. <Isabella Guadarrama - Last Filed: 03/02/17 18:58> - Resident Resident Name: Devonte Echeverria - ED Attending Attestation I have performed the following: I have examined & evaluated the patient, The case was reviewed & discussed with the resident, I agree w/resident's findings & plan, Exceptions are as noted - HPI HPI: 03/04/17 14:20 36yo female at 16 weeks gestation with vaginal spotting x 2 days and mild cramping. no passage of tissue, mild spotting. cramping improved. no dysuria - Medical Decision Making 03/02/17 18:57 I, Dr. Nidia Fernando, DO, attest that this document has been prepared under my direction and personally reviewed by me in its entirety. I further attest, that it accurately reflects all work, treatment, procedures and medical decision -making performed by me. 03/04/17 14:21 a/p: 36yo female at 16 weeks gestation with vaginal spotting -pelvic exam - os closed labs, hcg, ua, type and screen, pelvic ob limited u/s 03/04/17 14:23 pt is o + ultrasound shows live IUP at 15weeks 3 days discussed lab and imaging results with the patient. pt stable for d/c to home. 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 answered all questions <Nidia Fernando - Last Filed: 03/04/17 14:24>
[2017-03-02 19:05] LABS: ALBUMIN 3.3 g/dl (3.4-5.0); ANION GAP 8 (8-16); CALCIUM 8.7 mg/dL (8.5-10.1); CO2 26 mmol/L (21-32); GLUCOSE,RANDOM 73 mg/dL (74-106)
[2017-03-02 19:20] LABS: ALK PHOS 56 U/L (45-117); SGOT/AST 17 U/L (15-37); SGPT/ALT 14 U/L (12-78); TOT PROT 7.1 g/dl (6.4-8.2)
--- NOTE | 2017-03-02 19:25 | PDOC ---
*Physical Exam - Vital Signs Last Vital Signs Temp Pulse Resp BP Pulse Ox 98.9 F 93 H 18 125/75 97 03/02/17 16:29 03/02/17 16:29 03/02/17 16:29 03/02/17 16:29 03/02/17 16:29 - Physical Exam Comments: 03/02/17 20:27 GENERAL: Awake, alert, and fully oriented, in no acute distress HEAD: No signs of trauma, normocephalic, atraumatic EYES: PERRLA, EOMI, sclera anicteric, conjunctiva clear ENT: Auricles normal inspection, hearing grossly normal, nares patent, oropharynx clear without exudates. Moist mucosa LUNGS: No distress, speaks full sentences, clear to auscultation bilaterally HEART: Regular rate and rhythm, normal S1 and S2, no murmurs, rubs or gallops, peripheral pulses normal and equal bilaterally. ABDOMEN: Soft, nontender, normoactive bowel sounds. No guarding, no rebound. No masses EXTREMITIES: Normal inspection, Normal range of motion, no edema. No clubbing or cyanosis. NEUROLOGICAL: Cranial nerves II through XII grossly intact. Normal speech, normal gait, no focal sensorimotor deficits ED Treatment Course - LABORATORY CBC & Chemistry Diagram: 03/02/17 18:25 03/02/17 18:25 - ADDITIONAL ORDERS Additional order review: Laboratory Results 03/02/17 03/02/17 03/02/17 16:38 16:38 16:38 Beta HCG, Quant 47898.2 Urine Color Yellow Urine Appearance Slcloudy Urine pH 5.0 Ur Specific [place] 1.013 Urine Protein Negative Urine Glucose (UA) Negative Urine Ketones Negative Urine Blood 1+ H Urine Nitrite Negative Urine Bilirubin Negative Urine Urobilinogen 2.0 H Urine WBC (Auto) 3 Urine RBC (Auto) 1 Ur Epithelial Cells Rare Urine Mucus Rare Blood Type O POSITIVE Antibody Screen Negative 03/02/17 18:25 RBC 3.21 L MCV 84.2 MCHC 35.1 RDW 16.1 H MPV 6.7 L Neutrophils % 60.6 Lymphocytes % 29.0 D Monocytes % 8.0 Eosinophils % 1.9 Basophils % 0.5 Medical Decision Making - Medical Decision Making 03/02/17 20:[address] Echeverria. Will follow up CMP and ultrasound results. 03/02/17 20:22 US Shows: Single live intrauterine in breech presentation. heart activity was documented. Oligohydramnios. However, amniotic fluid index was not calculated on this exam. Normal sagittal length of the uterine cervix without dilatation. Note is made of a posterior myometrial fibroid measuring 2.7 x 2 cm. Patient advised of results. CMP normal, reassuring. Discharged with return precautions and OBGYN follow up. *DC/Admit/Observation/Transfer Diagnosis at time of Disposition: Vaginal bleeding affecting early - Discharge Dispostion Disposition: HOME Condition at time of disposition: Good Admit: No - Referrals - Patient Instructions Printed Discharge Instructions: DI for Vaginal Bleeding During Additional Instructions: Please see your OBGYN in the next 7 days. Please return if you have any new, worsening or concerning symptoms. -Dr Glass - Post Discharge Activity
[2017-03-02 20:25] LABS: CREATININE 0.5 mg/dL (0.55-1.02)
[2017-03-02 20:58] VITALS: BP 118/76; PULSE 68
[2017-03-02 21:29] LABS: URINE LEUK ESTERASE Negative (NEGATIVE)
== END 2017-03-02 20:58 | disposition home or self-care (01) ==
LOC: JER 16:22
DX: O26.892 Other specified pregnancy related conditions, second trimester (principal); N93.9 Abnormal uterine and vaginal bleeding, unspecified; Z3A.16 16 weeks gestation of pregnancy; D57.3 Sickle-cell trait
CPT/HCPCS: 36415; 76815-TC; 80053; 81003; 81015; 84702; 85025; 86850; 86900; 86901; 99281-25

== ENCOUNTER 2019-02-03 15:21 | Emergency (ER) | payer OTHER ==
[2019-02-03 15:42] VITALS: BP 121/76; PULSE 96; TEMP 98.2; BMI 34.9
--- NOTE | 2019-02-03 16:53 | PDOC ---
History of Present Illness - General Chief Complaint: Sore Throat Stated Complaint: SORE THROAT Time Seen by Provider: 02/03/19 15:52 - History of Present Illness Initial Comments: 02/03/19 16:30 CHIEF COMPLAINT: cold symptoms HISTORY OF PRESENT ILLNESS: 38 yo F with no significant PMH presents to [facility] with sore throat, runny nose, cough and chills x 6 days. Patient states she had night sweats but is unsure if she has had a fever at all this week. Denies any nausea, vomiting, diarrhea. No recent travel or sick contacts. PAST MEDICAL HISTORY: Denies past medical history FAMILY HISTORY: Denies SOCIAL HISTORY: Denies tobacco, alcohol, illicit drug use. SURGICAL HISTORY: Denies ALLERGIES: No known drug allergies REVIEW OF SYSTEMS General/Constitutional: Chills, night sweats. Denies weakness, weight change. HEENT: Denies change in vision. Denies ear pain or discharge. Denies sore throat. Cardiovascular: Denies chest pain or shortness of breath. Respiratory: Cough, denies wheezing, hemoptysis. Gastrointestinal: Denies nausea, vomiting, diarrhea or constipation. Denies rectal bleeding. Genitourinary: Denies dysuria, frequency, or change in urination. Musculoskeletal: Denies joint or muscle swelling or pain. Denies neck or back pain. Skin and breasts: Denies rash or easy bruising. Neurologic: Denies headache, vertigo, loss of consciousness, or loss of sensation. Psychiatric: Denies depression or anxiety. PHYSICAL EXAM General Appearance: Well-appearing, appropriately dressed. No apparent distress , no intoxication. HEENT: Exudate to left tonsil. EOMI, PERRLA, normal voice, TMs normal, pharynx normal. No conjunctival pallor. No photophobia, scleral icterus. Neck: Supple. Trachea midline. No tenderness, rigidity, carotid bruit, stridor , lymphadenopathy, or thyromegaly. Respiratory/Chest: Lungs CTAB. No shortness of breath, chest tenderness, respiratory distress, accessory muscle use. No crackles, rales, rhonchi, stridor , wheezing, dullness Cardiovascular: RRR. S1, S2. No JVD, murmur, bradycardia, tachycardia. Vascular Pulses: Dorsalis-Pedis (R): 2+, Dorsalis-Pedis (L): 2+ Gastrointestinal/Abdominal: Normal bowel sounds. Abdomen soft, non-distended. No tenderness or rebound tenderness. No organomegaly, pulsatile mass, guarding , hernia, hepatomegaly, splenomegaly. Lymphatic: No adenopathy, tenderness. Musculoskeletal/Extremities: Normal inspection. FROM of all extremities, normal capillary refill. Pelvis Stable. No CVA tenderness. No tenderness to extremities, pedal edema, swelling, erythema or deformity. Integumentary: Appropriate color, dry, warm. 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 Fully oriented, alert. Appropriate mood/affect. Motor strength 5/5. No appreciable EOM palsy, facial droop or sensory deficit. Past History - Past Medical History Allergies/Adverse Reactions: Allergies Allergy/AdvReac Type Severity Reaction Status Date / Time ketorolac tromethamine Allergy Severe Swelling Verified 02/03/19 15:35 [From Toradol] meperidine HCl [From Demerol] Allergy Severe Swelling Verified 02/03/19 15:35 hydromorphone HCl AdvReac Mild Itching Verified 02/03/19 15:35 [From Dilaudid] morphine AdvReac Mild Itching Verified 02/03/19 15:35 Home Medications: Ambulatory Orders Benzonatate [Tessalon Pearls -] 100 mg PO TID #21 capsule 02/03/19 Pseudoephedrine HCl [12 Hour Decongestant] 120 mg PO BID #20 tablet.er 02/03/19 Anemia: Yes (sickle cell ) COPD: No - Reproductive History (#): 5 Para: 3 Therapeutic (s) & number: Yes (1) Spontaneous : 1 - Immunization History Immunization Up to Date: No - Psycho Social/Smoking Cessation Hx Smoking Status: No Smoking History: Never smoked Have you smoked in the past 12 months: No Number of Cigarettes Smoked Daily: 0 Cigars Per Day: 0 Hx Alcohol Use: No Drug/Substance Use Hx: No Substance Use Type: None *Physical Exam - Vital Signs Last Vital Signs Temp Pulse Resp BP Pulse Ox 98.2 F 96 H 17 121/76 96 02/03/19 15:35 02/03/19 15:35 02/03/19 15:35 02/03/19 15:35 02/03/19 15:35 Medical Decision Making - Medical Decision Making 02/03/19 16:53 38 yo F with no significant PMH [facility] with sore throat, runny nose, cough and chills x 6 days. -flu -strep Discharge - Discharge Information Problems reviewed: Yes Clinical Impression/Diagnosis: Upper respiratory infection Qualifiers: URI type: unspecified viral URI Qualified Code(s): J06.9 - Acute upper respiratory infection, unspecified Condition: Stable Disposition: HOME - Admission No - Additional Discharge Information Prescriptions: Benzonatate [Tessalon Pearls -] 100 mg PO TID #21 capsule Pseudoephedrine HCl [12 Hour Decongestant] 120 mg PO BID #20 tablet.er - Follow up/Referral - Patient Discharge Instructions Patient Printed Discharge Instructions: DI for Viral Upper Respiratory Infection -- Adult - Post Discharge Activity Work/Back to School Note: Back to Work
== END 2019-02-03 17:44 | disposition home or self-care (01) ==
LOC: JERFT 15:21 → JER 15:21 → JERFT 17:44
DX: J06.9 Acute upper respiratory infection, unspecified (principal); B97.89 Other viral agents as the cause of diseases classified elsewhere; Z88.5 Allergy status to narcotic agent; Z88.6 Allergy status to analgesic agent
CPT/HCPCS: 87070; 87804; 87880; 99281-25